=== PATIENT | male | born 1985 | race African-American/Black ===

== ENCOUNTER 2022-04-21 19:42 | Observation (INO) | payer SELFPAY ==
[2022-04-21] MEDS ORDERED: SODIUM CHLORIDE 0.9% 2,000 ML IV STA (19:45)
[2022-04-21] MEDS ORDERED: LORazepam 2 MG/ML INJ IV STA (19:49)
[2022-04-21 20:05] LABS: Anisocytosis Slight; Basophils # (A) 0.1 k/uL (0-0.2); Basophils % (A) 1 %; Eosinophils # (A) 0.3 k/uL (0-0.7); Eosinophils % (A) 3 %; HCT 45.2 % (39.0-53.0); HGB 14.6 gm/dL (13.0-17.5); Lymphocytes % (A) 57 %; MCH 26.1 pg (25.0-35.0); MCHC 32.2 g/dL (31.0-37.0); MCV 81.1 fL (80.0-100.0); Monocytes # (A) 0.7 k/uL (0-1.0); Monocytes % (A) 6 %; Neutrophils # (A) 3.5 k/uL (1.3-7.7); Neutrophils % (A) 30 %; Platelet Count 382 k/uL (150-450); RBC 5.57 m/uL (4.30-5.90); RDW 16.7 % (11.5-15.5); WBC 11.4 k/uL (3.8-10.6)
[2022-04-21 20:10] LABS: ALT 32 U/L (4-49); AST 28 U/L (17-59); African American GFR (CKD) 74 (>60 ml/min/1.73 sqM); Albumin 4.6 g/dL (3.5-5.0); Alcohol <10 mg/dL; Alkaline Phosphatase 117 U/L (38-126); Amylase 84 U/L (30-110); Anion Gap 12 mmol/L; Blood Urea Nitrogen 13 mg/dL (9-20); Calcium 9.1 mg/dL (8.4-10.2); Carbon Dioxide 20 mmol/L (22-30); Chloride 104 mmol/L (98-107); Glucose 136 mg/dL (74-99); Lipase 104 U/L (23-300); Non-African American GFR(CKD) 64 (>60 ml/min/1.73 sqM); Potassium 3.2 mmol/L (3.5-5.1); Sodium 136 mmol/L (137-145); Total Bilirubin 0.4 mg/dL (0.2-1.3)
--- NOTE | 2022-04-21 20:10 | ED ---
Overdose HPI - General Chief Complaint: Overdose Stated Complaint: Head injury, poss overdose Time Seen by Provider: 04/21/22 19:45 Source: patient, EMS Mode of arrival: EMS Limitations: altered mental status - History of Present Illness Initial Comments: Patient is a 36-year-old, -[place]cu[place] male presenting to the emergency room via EMS accompanied by his girlfriend after unintentional overdose of THC along with a fall down approximately 5 stairs. Per the girlfriend's report he smoked marijuana and then ingested several edible THC coming knees and he has not previously taken THC coming as. Shortly after taking all of these items he became significantly intoxicated and agitated with excessive motor movements and a fell down approximately 5 stairs. The fall occurred with him on his buttocks entire way however he did hit his head up against the wall during the event. He denies previously taking any illicit drugs or utilization of THC on a regular basis. According to his girlfriend at the bedside he recently moved to the area and is being established with a local provider due to elevated blood pressure readings but has not formally been diagnosed with hypertension and does not take any medications on a regular basis. He has no other significant past medical history. - Related Data Allergies Allergy/AdvReac Type Severity Reaction Status Date / Time No Known Allergies Allergy Verified 04/21/22 19:58 Review of Systems ROS Statement: Those systems with pertinent positive or pertinent negative responses have been documented in the HPI. ROS Other: All systems not noted in ROS Statement are negative. Past Medical History Past Medical History: No Reported History History of Any Multi-Drug Resistant Organisms: None Reported Past Surgical History: No Surgical Hx Reported Past Psychological History: No Psychological Hx Reported Smoking Status: Never smoker Past Alcohol Use History: Occasional Past Drug Use History: Marijuana General Exam Limitations: altered mental status General appearance: alert, appears intoxicated, obese Head exam: Present: atraumatic, normocephalic, normal inspection Eye exam: Present: normal appearance, PERRL, scleral icterus, conjunctival injection ENT exam: Present: normal exam, mucous membranes moist Neck exam: Present: normal inspection, full ROM Respiratory exam: Present: normal lung sounds bilaterally. Absent: respiratory distress, wheezes, rales, rhonchi, stridor Cardiovascular Exam: Present: tachycardia, normal heart sounds. Absent: systolic murmur, diastolic murmur, rubs, gallop, clicks GI/Abdominal exam: Present: soft, normal bowel sounds. Absent: distended, tenderness, guarding, rebound, rigid Extremities exam: Present: normal inspection. Absent: pedal edema, joint swelling Neurological exam: Present: alert, altered Expanded Neurological exam: Present: protecting the airway Patient oriented to: Present: person Eye Response: (4) open spontaneously Motor Response: (6) obeys commands Verbal Response: (4) confused conversation Elsa Total: 14 Psychiatric exam: Present: agitated Expanded Focused psych exam: Present: restlessness Skin exam: Present: warm, dry, intact, normal color. Absent: rash Course Vital Signs 04/21/22 04/21/22 04/21/22 19:55 21:10 21:50 Temperature 98.2 F Pulse Rate 147 H 125 H 120 H Respiratory 22 16 17 Rate Blood Pressure 181/108 178/111 164/105 O2 Sat by Pulse 97 96 97 Oximetry - Reevaluation(s) Reevaluation #1: Patient developed nausea with significant emesis of food based products. No evidence of aspiration will defer CT chest x-ray at this time. Still need computed tomography scan of the head. Will give Zofran and additional 1 L fluid bolus. Family advised to keep nothing by mouth. Time: 22:00 Reevaluation #2: Patient with continued altered mental status with intermittent episodes of lucidity. Still with bouts of nausea and vomiting. Will plan for observation admission. Recommendation of observation stay discussed with friends at the [facility] and patient. Case discussed with Dr. Morillo. Dr. Roberts on-call for [facility] call paged regarding notification of admission for observation stay for altered mental status, acute intoxication due THC and intractable nausea and vomiting. Time: 23:34 Medical Decision Making - Medical Decision Making 36-year-old, -[place]cu[place] male presenting to the emergency room via EMS accompanied by his girlfriend after unintentional overdose of THC along with a fall down approximately 5 stairs. Will check urine drug screen, CBC, CMP, lactic acid, troponin and coags along with EKG. Will give IV fluid bolus and Ativan for agitation. Will monitor closely. EKG shows sinus tachycardia. Blood pressure elevated but stable no need for hypertensive intervention. Poison control contacted and case discussed with Yvette sorensen #[phone]. Poison control advise continued supportive care. Will continue to monitor and continue supportive care. CT of the brain and cervical spine negative for acute process. Labs show mild leukocytosis no obvious source of infection. CMP reveals low sodium, potassium and bicarbonate levels along with elevated lactic acid at 3.2. Troponin and liver enzymes normal. Will replace potassium IV and continue IV fluid boluses. Mental status remained remains altered with significant intoxication following commands with abnormal behavior at time such as grabbing at things in the air and moving in the bed without provocation. Patient to be admitted for altered mental status, acute intoxication of THC and intractable nausea and vomiting to Dr. Roberts who is on-call for [facility] call. Dr. Roberts paged and Orders for admission placed. Case discussed with Dr. Morillo. - Lab Data Result diagrams: 04/21/22 19:45 04/21/22 19:45 Lab Results 04/21/22 04/21/22 04/21/22 Range/Units 19:45 19:45 19:45 WBC 11.4 H (3.8-10.6) k/uL RBC 5.57 (4.30-5.90) m/uL Hgb 14.6 (13.0-17.5) gm/dL Hct 45.2 (39.0-53.0) % MCV 81.1 (80.0-100.0) fL MCH 26.1 (25.0-35.0) pg MCHC 32.2 (31.0-37.0) g/dL RDW 16.7 H (11.5-15.5) % Plt Count 382 (150-450) k/uL MPV 8.0 Neutrophils % 30 % Lymphocytes % 57 % Monocytes % 6 % Eosinophils % 3 % Basophils % 1 % Neutrophils # 3.5 (1.3-7.7) k/uL Lymphocytes # 6.5 H (1.0-4.8) k/uL Monocytes # 0.7 (0-1.0) k/uL Eosinophils # 0.3 (0-0.7) k/uL Basophils # 0.1 (0-0.2) k/uL Anisocytosis Slight Sodium 136 L (137-145) mmol/L Potassium 3.2 L (3.5-5.1) mmol/L Chloride 104 (98-107) mmol/L Carbon Dioxide 20 L (22-30) mmol/L Anion Gap 12 mmol/L BUN 13 (9-20) mg/dL Creatinine 1.39 H (0.66-1.25) mg/dL Est GFR (CKD-EPI)AfAm 74 (>60 ml/min/1.73 sqM) Est GFR (CKD-EPI)NonAf 64 (>60 ml/min/1.73 sqM) Glucose 136 H (74-99) mg/dL Lactic Ac Sepsis Rflx Plasma Lactic Acid Mark 3.2 H* (0.7-2.0) mmol/L Calcium 9.1 (8.4-10.2) mg/dL Total Bilirubin 0.4 (0.2-1.3) mg/dL AST 28 (17-59) U/L ALT 32 (4-49) U/L Alkaline Phosphatase 117 (38-126) U/L Troponin I (0.000-0.034) ng/mL Total Protein 8.0 (6.3-8.2) g/dL Albumin 4.6 (3.5-5.0) g/dL Amylase 84 (30-110) U/L Lipase 104 (23-300) U/L Salicylates mg/dL Acetaminophen ug/mL Serum Alcohol <10 mg/dL 04/21/22 04/21/22 04/21/22 Range/Units 19:45 20:08 22:57 WBC (3.8-10.6) k/uL RBC (4.30-5.90) m/uL Hgb (13.0-17.5) gm/dL Hct (39.0-53.0) % MCV (80.0-100.0) fL MCH (25.0-35.0) pg MCHC (31.0-37.0) g/dL RDW (11.5-15.5) % Plt Count (150-450) k/uL MPV Neutrophils % % Lymphocytes % % Monocytes % % Eosinophils % % Basophils % % Neutrophils # (1.3-7.7) k/uL Lymphocytes # (1.0-4.8) k/uL Monocytes # (0-1.0) k/uL Eosinophils # (0-0.7) k/uL Basophils # (0-0.2) k/uL Anisocytosis Sodium (137-145) mmol/L Potassium (3.5-5.1) mmol/L Chloride (98-107) mmol/L Carbon Dioxide (22-30) mmol/L Anion Gap mmol/L BUN (9-20) mg/dL Creatinine (0.66-1.25) mg/dL Est GFR (CKD-EPI)AfAm (>60 ml/min/1.73 sqM) Est GFR (CKD-EPI)NonAf (>60 ml/min/1.73 sqM) Glucose (74-99) mg/dL Lactic Ac Sepsis Rflx Y Plasma Lactic Acid Mark (0.7-2.0) mmol/L Calcium (8.4-10.2) mg/dL Total Bilirubin (0.2-1.3) mg/dL AST (17-59) U/L ALT (4-49) U/L Alkaline Phosphatase (38-126) U/L Troponin I <0.012 (0.000-0.034) ng/mL Total Protein (6.3-8.2) g/dL Albumin (3.5-5.0) g/dL Amylase (30-110) U/L Lipase (23-300) U/L Salicylates <1.0 mg/dL Acetaminophen <10.0 ug/mL Serum Alcohol mg/dL - EKG Data EKG Comments: Sinus tachycardia, nonspecific T-wave abnormality, ventricular rate 132 bpm, ND interval 142 ms, QRS duration 90 ms, QT/QTC 294/372 ms, PRT axes 52, 18, 55 - Radiology Data Radiology results: report reviewed, image reviewed CT of the brain and cervical spine without contrast negative computed tomography scan of the brain. Cervical kyphosis curvature probably due to positioning. This also can be associated with spasms. No acute fracture of the cervical spine Disposition Clinical Impression: Accidental drug overdose, AMS (altered mental status), Intractable nausea and vomiting Disposition: ADMITTED IP TO THIS [facility] Condition: Stable Is patient prescribed a controlled substance at d/c from ED?: No Referrals: None,Stated [Primary Care Provider] - 1-2 days Time of Disposition: 23:39
[2022-04-21 20:15] LABS: Lymphocytes # (A) 6.5 k/uL (1.0-4.8)
[2022-04-21] MEDS ORDERED: ONDANSETRON 4 MG/2 ML VIAL IVP STA (21:47)
[2022-04-21] MEDS ORDERED: SODIUM CHLORIDE 0.9% 1,000 ML IV STA (21:47)
[2022-04-21] MEDS ORDERED: POTASSIUM CHLORIDE 10 MEQ in WATER FOR INJECTION 1 100ML.BAG IVPB STA (22:36)
--- NOTE | 2022-04-21 22:44 | CT ---
EXAMINATION TYPE: CT brain azraine wo con DATE OF EXAM: 04/21/2022 COMPARISON: None HISTORY: Fall CT DLP: 2174.4 mGycm Automated exposure control for dose reduction was used. Images of the brain and cervical spine obtained with no contrast. Ventricles and sulci appear normal. There is no mass effect nor midline shift. No sign of intracrania l hemorrhage. The calvarium is intact. There is normal aeration of the mastoid sinuses. The skull bas e is intact. There is a mild cervical kyphotic deformity. Facet joints are intact. Disc spaces are normal. No comp ression fracture. Prevertebral soft tissues are intact. There is prominence of the prevertebral soft tissues at the upper cervical spine due to the obesity. IMPRESSION: Negative CT scan of the brain. Cervical kyphotic curvature probably due to positioning. This can also be associated with spasm. No f racture seen in the cervical spine.
[2022-04-21] MEDS ORDERED: POTASSIUM CHLORIDE 20 MEQ in WATER FOR INJECTION 1 100ML.BAG IVPB STA (22:53)
[2022-04-21 23:27] LABS: Acetaminophen <10.0 ug/mL; Salicylate <1.0 mg/dL
[2022-04-21 23:32] LABS: Amphetamine Screen,Urine Not Detected (NotDetected); Barbiturate Screen,Urine Not Detected (NotDetected); Benzodiazepines Screen,Urine Detected (NotDetected); Cocaine Screen,Urine Not Detected (NotDetected); Methadone Screen, Urine Not Detected (NotDetected); Opiate Screen,Urine Not Detected (NotDetected); Oxycodone Screen, Urine Not Detected (NotDetected); Phencyclidine Screen,Urine Not Detected (NotDetected); Tricyclic Antidepressant,Urine Not Detected (NotDetected); Urn Cannabinoid Scrn Detected (NotDetected)
[2022-04-21] MEDS ORDERED: NALOXONE 0.4 MG/ML 1 ML VIAL IV PRN (23:34)
[2022-04-21] MEDS ORDERED: ONDANSETRON 4 MG/2 ML VIAL IVP PRN (23:34)
[2022-04-21] MEDS ORDERED: LORazepam 2 MG/ML INJ IV PRN (23:45)
[2022-04-22] MEDS: 0.9% NACL WITH KCL 20 MEQ/L 1,000 ML IV SCH ×2 (02:12→17:44)
[2022-04-22 02:58] LABS: African American GFR (CKD) >90 (>60 ml/min/1.73 sqM); Anion Gap 14 mmol/L; Blood Urea Nitrogen 12 mg/dL (9-20); Calcium 8.5 mg/dL (8.4-10.2); Carbon Dioxide 23 mmol/L (22-30); Chloride 105 mmol/L (98-107); Glucose 129 mg/dL (74-99); Non-African American GFR(CKD) >90 (>60 ml/min/1.73 sqM); Potassium 4.4 mmol/L (3.5-5.1); Sodium 142 mmol/L (137-145)
[2022-04-22 06:42] VITALS: RESP 18
[2022-04-22] MEDS ORDERED: KETOROLAC 15 MG/ML 1 ML VIAL IVP PRN (10:42)
[2022-04-22] MEDS ORDERED: KETOROLAC 15 MG/ML 1 ML VIAL IVP SCH (12:00)
[2022-04-22 15:30] VITALS: BP 169/110; PULSE 90; TEMP 97.7
--- NOTE | 2022-04-23 12:02 | HP ---
HISTORY AND PHYSICAL 36-year-old , came to emergency room, never done marijuana before, 2 bags of marijuana yesterday, he fell down 5 stairs. He has never done marijuana before. He was admitted for monitoring. Currently, he is doing well, eating and drinking. He is not confused. His is here, says he is back to his normal self. ALLERGIES: Negative. REVIEW OF SYSTEMS: 14-point review of systems currently is negative. PAST MEDICAL HISTORY: Negative. PHYSICAL EXAMINATION: VITAL SIGNS: Stable. Afebrile. He is alert, oriented x3, given appropriate answers. CARDIOVASCULAR: S1, S2. LUNGS: Clear. GI: Soft. ENDOCRINE: BMI is over 40, obesity counseling given. NEUROLOGIC: Cranial nerves intact. PSYCH: Fair mood and affect. Pupils equal, round, reactive. Altered mental status secondary to marijuana overdose. He is back to his baseline status at this time. He has mild hyponatremia, lactic acidosis, which has improved with fluids. He remains much better than yesterday when he was admitted. He will be able to go home tonight as he is medically stable per family. Sodium is back to 142, potassium 4.4, GFR is over 90. Prognosis guarded. Lactic acid is now 2 down from 3.7. Possibly discharge to home tonight. MMODL / IJN: [id number] /
== END 2022-04-22 19:02 | disposition home or self-care (01) ==
LOC: EC 19:42 → 6NMEDSUR 23:45
PROVIDERS: ADMIT Family Medicine; ATTEND Family Medicine
DX: T40.711A Poisoning by cannabis, accidental (unintentional), initial encounter (principal); R11.2 Nausea with vomiting, unspecified; R41.82 Altered mental status, unspecified; E87.1 Hypo-osmolality and hyponatremia; E87.20 Acidosis, unspecified; E66.9 Obesity, unspecified; Z68.41 Body mass index [BMI] 40.0-44.9, adult
CPT/HCPCS: 96361; 96365; 96366; 96375 ×2; 99285; 36415; 93005; 80053; 80048; 82150; 83605 ×2; 83690; 83735; 84484; 85025; 80306; 80143; 80320; 80179; 72125; 70450; G0378 ×3; J2060; J3480; J2405; J1885

== ENCOUNTER 2022-12-22 20:03 | Emergency (ER) | payer OTHER ==
[2022-12-22 20:12] VITALS: BP 140/90; PULSE 111; RESP 18; TEMP 98.2
== END 2022-12-22 22:01 | disposition home or self-care (01) ==
LOC: EC 20:03
DX: Z02.83 Encounter for blood-alcohol and blood-drug test (principal)
CPT/HCPCS: 99499

== ENCOUNTER → 2023-01-13 | Outpatient (CLI) | payer OTHER ==
--- NOTE | 2023-01-14 08:04 | US ---
EXAMINATION TYPE: US thyroid st tissue head/neck DATE OF EXAM: 01/13/2023 COMPARISON: NONE CLINICAL INDICATION: Male, 37 years old with history of R22.0 NODULE OF SKIN OF HEAD; nodule on foreh ead seen for 4 years and is getting bigger, soft, does not hurt, patient would like to get it removed TECHNIQUE: head soft tissue scan FINDINGS: At palpable was 2.3 x 1.9 x 0.2cm hyperechoic lesion that was compressible, possible lipom a IMPRESSION: 1. Isoechoic area over the palpable region comparable to the subcutaneous tissues. Lipoma is most lik gabriel within the differential.
== END | disposition home or self-care (01) ==
LOC: RADUSWWP 15:52
PROVIDERS: ATTEND Family Medicine
DX: R22.0 Localized swelling, mass and lump, head (principal)
CPT/HCPCS: 76536

== ENCOUNTER 2023-08-31 09:52 | Day surgery (SDC) | payer OTHER ==
[2023-08-29 18:05] VITALS: BMI 51.7
[2023-08-31] MEDS: LACTATED RINGERS 1,000 ML IV SCH (11:13)
[2023-08-31 11:36] VITALS: TEMP 97.7
[2023-08-31] MEDS ORDERED: PROPOFOL 10 MG/ML 20 ML VIAL IV ONE (12:08)
--- NOTE | 2023-08-31 12:23 | P.PCN ---
Date of Procedure: 08/31/23 Procedure(s) Performed: BRIEF HISTORY: Patient is a 38-year-old pleasant -[place] male scheduled for an elective colonoscopy as a part of evaluation of intermittent rectal bleeding for the last 1 year duration. PROCEDURE PERFORMED: Colonoscopy. PREOPERATIVE DIAGNOSIS: Intermittent rectal bleeding. IV sedation per Anesthesia. PROCEDURE: After informed consent was obtained, the patient, was brought into the endoscopy unit. IV sedation was administered by Anesthesia under continuous monitoring. Digital rectal examination was normal. Initially the Olympus CF-160 flexible video colonoscope was then inserted in the rectum, gradually advanced into the cecum without any difficulty. Careful examination was performed as the scope was gradually being withdrawn. Ileocecal valve and the appendiceal orifice were visualized and appeared normal. Prep was fair.. Mucosa of the cecum, ascending colon, transverse colon, descending colon, sigmoid colon, and rectum appeared normal. Retroflexion was performed in the rectum and small internal hemorrhoids. were seen. The patient tolerated the procedure well. IMPRESSION: Normal-appearing colon from rectum to cecum with no evidence of colorectal neoplasia. Small internal hemorrhoids. RECOMMENDATIONS: Findings of this examination were discussed with the patient as well as his family. Recommend high-fiber diet and fiber supplements a regular basis and avoid straining and constipation. He was advised to have a repeat colonoscopy in 10 years..
[2023-08-31 13:14] VITALS: BP 140/91; PULSE 77; RESP 20
== END 2023-08-31 13:05 | disposition home or self-care (01) ==
LOC: ORWHC2ENDO 09:52
PROVIDERS: ATTEND Internal Medicine Gastroenterology
DX: K64.8 Other hemorrhoids (principal); K62.5 Hemorrhage of anus and rectum; I10 Essential (primary) hypertension; Z79.899 Other long term (current) drug therapy; Z98.890 Other specified postprocedural states
CPT/HCPCS: 45378; J2704

== ENCOUNTER 2024-01-26 12:51 | Emergency (ER) | payer OTHER ==
[2024-01-26 13:07] VITALS: RESP 18
--- NOTE | 2024-01-26 13:46 | ED ---
General Adult HPI - General Chief complaint: Dental/Oral Stated complaint: Facial swelling Time Seen by Provider: 01/26/24 13:30 Source: patient, RN notes reviewed, old records reviewed Mode of arrival: ambulatory Limitations: no limitations - History of Present Illness Initial comments: She was a 38-year-old male who presents emergency department complaining of left facial and jaw swelling. It occurred suddenly when eating. Swelling has since gone down. It is located just anterior to his left ear. States he was eating when it occurred. Denies any difficulty breathing. Denies any difficulty in swallowing. Swelling is nearly resolved at this time. Denies any dental pain or facial pain. History of hypertension. Presents for further evaluation. - Related Data Home Medications Medication Instructions Recorded Confirmed lisinopriL [Zestril] 10 mg PO DAILY 08/29/23 08/31/23 Previous Rx's Medication Instructions Recorded Amoxic-Pot Clav 875-125Mg 1 tab PO Q12HR 7 Days #14 tab 01/26/24 [Augmentin 875-125] Allergies Allergy/AdvReac Type Severity Reaction Status Date / Time No Known Allergies Allergy Verified 01/26/24 13:05 Review of Systems ROS Statement: Those systems with pertinent positive or pertinent negative responses have been documented in the HPI. Review of Systems: CONST: Denies fever EYES: Denies blurry vision ENT: Denies nasal congestion C/V: Denies Chest pain RESP: Denies shortness of breath GI: Denies abdominal pain : Denies dysuria SKIN: Denies rash. MSK: Denies joint pain. NEURO: Denies headache ROS Other: All systems not noted in ROS Statement are negative. Past Medical History Past Medical History: Hypertension Additional Past Medical History / Comment(s): rectal bleeding History of Any Multi-Drug Resistant Organisms: None Reported Past Surgical History: No Surgical Hx Reported Past Anesthesia/Blood Transfusion Reactions: Motion Sickness Additional Past Anesthesia/Blood Transfusion Reaction / Comment(s): no ane sthesia hx. Past Psychological History: No Psychological Hx Reported Smoking Status: Former smoker Past Alcohol Use History: Occasional Past Drug Use History: None Reported - Past Family History Mother Family Medical History: No Reported History General Exam - General Exam Comments Initial Comments: General: Appears in no acute distress. HEAD: Normal with no signs of head trauma. EYES: EOMI. ENT: Hearing grossly intact. Minimal swelling over the left parotid gland. No tenderness to palpation. No floor the mouth tenderness or edema. Tongue is midline and nonswollen. Uvula is midline and nonswollen. Posterior oropharynx within normal limits. No stridor auscultated on exam. No evidence of Leon's angina. RESPIRATORY: No respiratory distress. C/V: Regular rate and rhythm. ABD: Abdomen is nondistended. EXT: No obvious deformity. SKIN: No rashes or lesions observed on exposed skin. NEURO: Alert and oriented. Limitations: no limitations Course Vital Signs 01/26/24 01/26/24 13:04 13:57 Temperature 97.1 F L 97.9 F Pulse Rate 88 82 Respiratory 18 18 Rate Blood Pressure 142/96 140/89 O2 Sat by Pulse 98 98 Oximetry Medical Decision Making - Medical Decision Making Was pt. sent in by a medical professional or institution (, PA, CURRENCY MACHINE OPERATOR, urgent care, hospital, or penitentiary...) When possible be specific @ -No Did you speak to anyone other than the patient for history (EMS, parent, family, police, friend...)? What history was obtained from this source @ -No Did you review nursing and triage notes (agree or disagree)? Why? @ -I reviewed and agree with nursing and triage notes Were old charts reviewed (outside hosp., previous admission, EMS record, old EKG, old radiological studies, urgent care reports/EKG's, penitentiary records)? Report findings @ -No old charts were reviewed Differential Diagnosis (chest pain, altered mental status, abdominal pain women, abdominal pain men, vaginal bleeding, weakness, fever, dyspnea, syncope, headache, dizziness, GI bleed, back pain, seizure, CVA, palpatations, mental health, musculoskeletal)? @ -Tooth ache, tooth abscess, sialoadenitis, parotiditis. This list is not inclusive. EKG interpreted by me (3pts min.). @ -None done X-rays interpreted by me (1pt min.). @ -None done CT interpreted by me (1pt min.). @ -None done U/S interpreted by me (1pt. min.). @ -None done What testing was considered but not performed or refused? (CT, X-rays, U/S, labs)? Why? @ -None What meds were considered but not given or refused? Why? @ -None Did you discuss the management of the patient with other professionals (professionals i.e. , PA, CURRENCY MACHINE OPERATOR, lab, RT, psych nurse, executive secretary social welfare, linen keeper, teacher, staff submarine warfare officer, case loader operator)? Give summary @ -No Was smoking cessation discussed for >3mins.? @ -No Was critical care preformed (if so, how long)? @ -No Were there social determinants of health that impacted care today? How? (Homelessness, low income, unemployed, alcoholism, drug addiction, transportation, low edu. Level, literacy, decrease access to med. care, skilled nursing, rehab)? @ -No Was there de-escalation of care discussed even if they declined (Discuss DNR or withdrawal of care, Hospice)? DNR status @ -No What co-morbidities impacted this encounter? (DM, HTN, Smoking, COPD, CAD, Cancer, CVA, ARF, Chemo, Hep., AIDS, mental health diagnosis, sleep apnea, morbid obesity)? @ -None Was patient admitted / discharged? Hospital course, mention meds given and route, prescriptions, significant lab abnormalities, going to OR and other pertinent info. @ -Presents with left-sided swelling of the parotid gland that is nearly resolved at this time. Based on the story of it occurring while eating it was likely related to silo adenitis. Minimal persistent swelling at this time. I did recommend using sialagogues such as hard candies I will empirically treat the patient with a dose of steroid here and place patient on antibiotics. Patient was in agreement this plan. Vital signs within acceptable limits. No evidence of Leon's angina at this time. No respiratory distress. No issues with swallowing. I will provide the patient with a prescription for Augmentin. I instructed the patient to follow up with their PCP in the next 1-3 days.. I explained that the patient should return to the emergency department if they experience any worsening symptoms. Strict return precautions were discussed with the patient. The patient expressed understanding of these instructions. I answered all questions that the patient had. The patient was discharged home in good condition with their prescriptions and follow up information. Undiagnosed new problem with uncertain prognosis? @ -No Drug Therapy requiring intensive monitoring for toxicity (Heparin, Nitro, Insulin, Cardizem)? @ -No Were any procedures done? @ -No Diagnosis/symptom? @ -Sialoadenitis Acute, or Chronic, or Acute on Chronic? @ -Acute Uncomplicated (without systemic symptoms) or Complicated (systemic symptoms)? @ -Uncomplicated Side effects of treatment? @ -No Exacerbation, Progression, or Severe Exacerbation? @ -No Poses a threat to life or bodily function? How? (Chest pain, [place], ME, pneumonia, PE, COPD, DKA, ARF, appy, cholecystitis, CVA, Diverticulitis, Homicidal, Suicidal, threat to staff... and all critical care pts) @ -Unlikely Disposition Clinical Impression: Sialoadenitis Disposition: HOME SELF-CARE Condition: Good Instructions (If sedation given, give patient instructions): Sialoadenitis (ED) Prescriptions: Amoxic-Pot Clav 875-125Mg [Augmentin 875-125] 1 tab PO Q12HR 7 Days #14 tab Is patient prescribed a controlled substance at d/c from ED?: No Referrals: Taryn Ludwig MD [Primary Care Provider] - 1-2 days Time of Disposition: 13:45
[2024-01-26] MEDS: dexAMETHasone 4 MG TAB PO STA (13:52)
[2024-01-26] MEDS: AMOXIC-POT CLAV 875-125MG 1 EACH TAB PO STA (13:52)
[2024-01-26 14:04] VITALS: BP 140/89; PULSE 82; TEMP 97.9
== END 2024-01-26 14:00 | disposition home or self-care (01) ==
LOC: EC 12:51
DX: K11.20 Sialoadenitis, unspecified (principal); Z87.891 Personal history of nicotine dependence
CPT/HCPCS: 99282; J8540